=== PATIENT | female | born 1965 | race Caucasian/White ===

== ENCOUNTER 2019-04-23 09:03 | Emergency (ER) | payer MEDICAID ==
[~2019-04-23] VITALS: Ht 170.2 cm; Wt 80.0 kg
[2019-04-23 10:26] LABS: BASOPHILS % 1.3 % (0.0-2.0); EOSINOPHILS % 3.6 % (0.0-5.0); HEMATOCRIT. 36.9 % (36.0-48.0); HEMOGLOBIN. 12.7 g/dL (12.0-16.0); MEAN CORPUSCULAR HEMOGLOBIN 31.3 pg (28.0-32.0); MEAN CORPUSCULAR VOLUME 90.9 fL (81.0-99.0); MEAN PLATELET VOLUME 9.1 fl (7.4-10.4); MONOCYTES % 9.6 % (2.0-8.0); NEUTROPHILS % 54.5 % (40.0-76.0); PLATELET 289 x1000/uL (130-400); RED BLOOD CELL COUNT 4.07 mill/uL (4.2-5.4); RED CELL DISTRIBUTION WIDTH 14.3 % (11.6-14.6)
[2019-04-23 10:33] LABS: CHLORIDE 106 mEq/L (98-107)
[2019-04-23 10:38] LABS: ETHANOL BLOOD 183 mg/dL
[2019-04-23 14:45] VITALS: BP 135/85
== END 2019-04-23 15:29 | disposition home or self-care (01) ==
LOC: ER 09:15
DX: F10.229 Alcohol dependence with intoxication, unspecified (principal); F32.9 Major depressive disorder, single episode, unspecified; D57.1 Sickle-cell disease without crisis; Y90.6 Blood alcohol level of 120-199 mg/100 ml; Z76.0 Encounter for issue of repeat prescription
CPT/HCPCS: 36415; 80320; 99283; G0480

== ENCOUNTER 2019-04-23 16:08 | Emergency (ER) | payer MEDICAID ==
[~2019-04-23] VITALS: Ht 157.5 cm; Wt 85.0 kg
[2019-04-23 17:03] VITALS: BP 124/79
== END 2019-04-23 17:40 | disposition home or self-care (01) ==
LOC: ER 16:08
DX: K08.89 Other specified disorders of teeth and supporting structures (principal); F32.9 Major depressive disorder, single episode, unspecified; D57.1 Sickle-cell disease without crisis
CPT/HCPCS: 99283